=== PATIENT | male | born 1995 | race American Indian/Alaskan Native ===

== ENCOUNTER 2018-08-16 20:30 | Emergency (ER) | payer SELFPAY ==
[2018-08-16 20:57] VITALS: RESP 18; TEMP 98.3
[2018-08-16 20:58] VITALS: BMI 25.0
--- NOTE | 2018-08-16 22:39 | ED PDOC ---
Arrival/HPI <Raoul Guzman - Last Filed: 08/17/18 00:35> - General Historian: Patient - History of Present Illness Narrative History of Present Illness (Text): 22 year old male who presents to the ED today with 1 year history of right ear pain, which has been gradually worsening. Patient states he noticed some slight decrease in hearing and chronic nasal congestion. Patient now feel as if there is some swelling and worsening pain behind his right ear. Patient denies any fever, chills, trauma/injuries, or any other complaints. Symptom Onset: Gradual Symptom Course: Unchanged Activities at Onset: Light Context: Home <Rita Hawley - Last Filed: 08/17/18 01:37> - General Chief Complaint: ENT Problem Time Seen by Provider: 08/16/18 21:31 Past Medical History - Provider Review Nursing Documentation Reviewed: Yes - Psychiatric Hx Substance Use: No <Rita Hawley Last Filed: 08/17/18 01:37> Family/Social History - Physician Review Nursing Documentation Reviewed: Yes Family/Social History: Unknown Family HX Smoking Status: Never Smoked Hx Alcohol Use: No Hx Substance Use: No <Rita Hawley - Last Filed: 08/17/18 01:37> Allergies/Home Meds <Raoul Guzman - Last Filed: 08/17/18 00:35> <Rita Hawley - Last Filed: 08/17/18 01:37> Allergies/Adverse Reactions: Allergies No Known Allergies Allergy (Verified 08/16/18 20:57) Review of Systems - Physician Review All systems were reviewed & negative as marked: Yes - Review of Systems Constitutional: absent: Fatigue, Fevers ENT: Other (+right ear pain) Respiratory: absent: SOB, Cough, Wheezing Cardiovascular: absent: Chest Pain, Palpitations Gastrointestinal: absent: Abdominal Pain, Diarrhea, Nausea, Vomiting Musculoskeletal: absent: Arthralgias Skin: absent: Rash Neurological: absent: Headache, Dizziness Psychiatric: absent: Anxiety, Depression <Rita Hawley Last Filed: 08/17/18 01:37> Physical Exam Vital Signs Temp Pulse Resp BP Pulse Ox 08/16/18 20:57 98.3 F 61 18 129/65 100 <Raoul Guzman - Last Filed: 08/17/18 00:35> Vital Signs Reviewed: Yes Vital Signs Temp Pulse Resp BP Pulse Ox 08/16/18 20:57 98.3 F 61 18 129/65 100 Temperature: Afebrile Blood Pressure: Normal Pulse: Regular Respiratory Rate: Normal Appearance: Positive for: Well-Appearing, Non-Toxic, Comfortable Pain Distress: None Mental Status: Positive for: Alert and Oriented X 3 - Systems Exam Head: Present: Atraumatic, Normocephalic. No: Swelling Pupils: Present: PERRL Extroacular Muscles: Present: EOMI Conjunctiva: Present: Normal Ears: Present: Normal, NORMAL TM, Normal Canal, Other (NO mastoid tenderness or edema). No: Erythema, TM Bulging, Fluid, TM Perf Mouth: Present: Moist Mucous Membranes, Normal Lips, Normal Tounge. No: Drooling, Trismus Pharnyx: Present: Normal. No: ERYTHEMA, EXUDATE, TONSILS ENLARGED, Peritonsilar Swelling, Uvular Deviation, Muffled/Hoarse Voice, Strider, Soft Palate/Uvular Edema Nose (External): Present: Atraumatic Nose (Internal): Present: Normal Inspection Neck: Present: Normal Range of Motion, Lymphadenopathy. No: Meningeal Signs, MIDLINE TENDERNESS, Paraspinal Tenderness Respiratory/Chest: Present: Clear to Auscultation, Good Air Exchange. No: Respiratory Distress, Accessory Muscle Use Cardiovascular: Present: Regular Rate and Rhythm, Normal S1, S2. No: Murmurs Back: Present: Paraspinal Tenderness Neurological: Present: GCS=15, Speech Normal Skin: Present: Warm, Dry, Normal Color. No: Rashes Psychiatric: Present: Alert, Oriented x 3 <Rita Hawley T - Last Filed: 08/17/18 01:37> Medical Decision Making - RAD Interpretation Radiology Orders: 08/16/18 22:04 IAC W/O CONTRAST [CT] Stat - Medication Orders Current Medication Orders: Discontinued Medications Ibuprofen (Motrin Tab) 600 mg PO STAT STA Stop: 08/16/18 22:05 Last Admin: 08/16/18 22:25 Dose: 600 mg MAR Pain/Vitals Document 08/16/18 22:25 JOL (Rec: 08/16/18 22:26 JOL [id number]) Pain Reassessment Is This A Pain ReAssessment? No Sleep Is patient sleeping during reassessment? No Presence of Pain Presence of Pain Yes Pain Scale Used Protocol: PSCALES Pain Scale Used Numeric Location Pain Location Body Site Ear Intensity 6 Scale Used Numeric <Raoul Guzman - Last Filed: 08/17/18 00:35> ED Course and Treatment: 08/16/18 22:34 Impression: 22 year old male c/o right ear pain for 1 year, slight decreased in hearing, and some swelling/pain behind right ear. Plan: -- CT IAC w/o contrast -- Motrin -- Reassess and disposition. Progress Notes: pt is non toxic well appearing; no distress stable vitals. IAC CT; Findings: Unremarkable middle ear cavities. Unremarkable mastoid air cells. Unremarkable external auditory canals. No evidence of effusion or fluid fluid level. Unremarkable visualized soft tissues. Unremarkable middle ear ossicles. Mild chronic mucosal inflammatory changes of the ethmoid air cells. Impression: Mild chronic mucosal inflammatory changes of the ethmoid air cells. Otherwise, unremarkable exam. pt reassessment; pt is non toxic well appearing; no distress. stable vitals. i discussed all results in depth with patient and advised f/u with ENT specialist within the next 2 days. advised immediate return if symptoms worsen,persist or if new symptoms develop. impression; earache, sinusitis motrin every 6 hours as needed for pain augmentin 1 tablet twice daily x 10 days. Follow up with the ENT specialist within the next 2 days Follow up with the primary care physician within the next 2 days. return immediately if symptoms worsen,persist or if new symptoms develop. - RAD Interpretation Radiology Orders: 08/16/18 22:04 IAC W/O CONTRAST [CT] Stat - Medication Orders Current Medication Orders: Discontinued Medications Ibuprofen (Motrin Tab) 600 mg PO STAT STA Stop: 08/16/18 22:05 Last Admin: 08/16/18 22:25 Dose: 600 mg MAR Pain/Vitals Document 08/16/18 22:25 JOL (Rec: 08/16/18 22:26 JOL [id number]) Pain Reassessment Is This A Pain ReAssessment? No Sleep Is patient sleeping during reassessment? No Presence of Pain Presence of Pain Yes Pain Scale Used Protocol: PSCALES Pain Scale Used Numeric Location Pain Location Body Site Ear Intensity 6 Scale Used Numeric <Rita Hawley - Last Filed: 08/17/18 01:37> - PA / [employer] / Resident Statement / has reviewed & agrees with the documentation as recorded. <ThomasRaoul - Last Filed: 08/17/18 00:35> - Scribe Statement The provider has reviewed the documentation as recorded by the Scribe Amelia López All medical record entries made by the Scribe were at my direction and personally dictated by me. I have reviewed the chart and agree that the record accurately reflects my personal performance of the history, physical exam, medical decision making, and the department course for this patient. I have also personally directed, reviewed, and agree with the discharge instructions and disposition. <Rita Hawley - Last Filed: 08/17/18 01:37> Disposition/Present on Arrival <Thomas,Raoul - Last Filed: 08/17/18 00:35> - Present on Arrival Any Indicators Present on Arrival: No History of DVT/PE: No History of Uncontrolled Diabetes: No Urinary Catheter: No History of Decub. Ulcer: No History Surgical Site Infection Following: None - Disposition Have Diagnosis and Disposition been Completed?: Yes Disposition Time: 22:05 Patient Plan: Discharge <GhadaeribertoRita - Last Filed: 08/17/18 01:37> - Disposition Diagnosis: Earache, Sinusitis Disposition: HOME/ ROUTINE Patient Problems: Current Active Problems Problem Status Onset Earache Acute Condition: GOOD Additional Instructions: motrin every 6 hours as needed for pain augmentin 1 tablet twice daily x 10 days. Follow up with the ENT specialist within the next 2 days Follow up with the primary care physician within the next 2 days. return immediately if symptoms worsen,persist or if new symptoms develop. Prescriptions: Amoxicillin/Clavulanate [Augmentin 875 MG-125 MG] 1 tab PO BID #20 tab Ibuprofen [Motrin] 600 mg PO Q6H PRN #20 tab PRN Reason: pain/fever reduction Referrals: Aren Huang Jr., MD [Primary Care Provider] - Follow up with primary Aric Peña DO [[facility]] - Follow up with primary Forms: [facility] (Czech), WORK NOTE
[2018-08-17 04:26] VITALS: BP 125/68; PULSE 68; O2SAT 99
--- NOTE | 2018-08-17 15:00 | CT ---
Date of service: 08/16/2018 PROCEDURE: CT OF THE TEMPORAL BONES WITHOUT CONTRAST HISTORY: right ear pain/worsening COMPARISON: None available. TECHNIQUE: High resolution axial images of the temporal bones were obtained. Coronal and sagittal reformats were generated. Radiation dose: Total exam DLP = 594.83 mGy-cm. This CT exam was performed using one or more of the following dose reduction techniques: Automated exposure control, adjustment of the mA and/or kV according to patient size, and/or use of iterative reconstruction technique. FINDINGS: RIGHT TEMPORAL BONE: RIGHT MIDDLE EAR: The ossicular chain appears within normal limits and there is no abnormal opacification of the middle ear cavity. The oval and round window knee shows appear intact and are unremarkable. No destructive bony changes are appreciated with normal appearing scutum present. RIGHT INNER EAR: Cochlea: Normal. Semicircular canals: Normal. RIGHT MASTOID AIR CELLS: Normal. RIGHT INTERNAL AUDITORY CANAL: Normal. RIGHT EXTERNAL AUDITORY CANAL: Normal. RIGHT VESTIBULAR AND COCHLEAR AQUEDUCT: Normal. OTHER FINDINGS: None. LEFT TEMPORAL BONE: LEFT MIDDLE EAR: The ossicular chain appears within normal limits and there is no abnormal opacification of the middle ear cavity. The oval and round window knee shows appear intact and are unremarkable. No destructive bony changes are appreciated with normal appearing scutum present. LEFT INNER EAR: Cochlea: Normal. Semicircular canals: Normal. LEFT MASTOID AIR CELLS: Normal. LEFT INTERNAL AUDITORY CANAL: Normal. LEFT EXTERNAL AUDITORY CANAL: Normal. LEFT VESTIBULAR AND COCHLEAR AQUEDUCTS: Normal. OTHER FINDINGS: None. IMPRESSION: Unremarkable non contrast enhanced CT of the temporal bones.
== END 2018-08-17 01:55 | disposition home or self-care (01) ==
LOC: ED 20:30
DX: H92.01 Otalgia, right ear (principal); J32.9 Chronic sinusitis, unspecified